=== PATIENT | female | born 1985 | race Caucasian/White ===

== ENCOUNTER 2025-02-25 19:28 | Emergency (ER) | payer OTHER, SELFPAY ==
[2025-02-25 19:32] VITALS: BP 145/97
[2025-02-25 20:13] LABS: Urine Character Clear (Clear)
[2025-02-25 20:18] LABS: HCG, Serum Qualitative Screen Negative
[2025-02-25 20:23] LABS: ALT (SGPT) 22 U/L (0-35); AST (SGOT) 25 U/L (14-36); Albumin 5.2 g/dl (3.5-5.0); Alkaline Phosphatase 49 U/L (38-126); Blood Urea Nitrogen 7 mg/dl (7-17); Calcium 9.6 mg/dl (8.4-10.2); Carbon Dioxide 25 mmol/L (22-30); Chloride 104 mmol/L (98-107); Glucose 90 mg/dl (70-99); Potassium 4.8 mmol/L (3.5-5.1); Sodium 138 mmol/L (135-145); Total Protein 7.7 g/dl (6.3-8.2); eGFR > 60.00
[2025-02-25 20:51] LABS: Hematocrit 41.8 % (37.0-47.0); Hemoglobin 14.1 g/dL (12.0-16.0); Mean Corp Hgb Conc. 34.1 g/dL (33.0-37.0); Mean Corpuscular Volume 89.6 fL (81.0-99.0); Nucleated Red Blood Cells % 0 %; Platelet Count 181 10^3/uL (130-400); Red Cell Dist. Width 12.6 % (11.5-14.5)
--- NOTE | 2025-02-25 21:38 | ED.GENMED ---
History of Present Illness
General
Chief Complaint: Back Pain
Source: patient
Exam Limitations: none
Time Seen by Provider: 02/25/25 21:23
History of Present Illness
History of Present Illness:
39yoF with a history of GERD, IBS, and migraines presenting with her for evaluation of low back pain. Patient was sitting on the ground around 1pm when she stood up and suddenly felt a sharp pain in her lumbar spine. Pain radiates to the
right lower back. Pain is worse with movement. She tried a muscle relaxer without any relief. She also reports feeling weak in her right leg. She was started on Bactrim yesterday by urgent care for a possible UTI. She has been experiencing pain
at the opening of her urethra for the past few days leading up to today. No issues with urination today. She denies any paresthesias/saddle anesthesia, incontinence, fevers.
Phy Exam
General Physical Exam
General Presentation: well appearing and no apparent distress
General Skin: warm and dry
General Habitus: normal
General Mental: alert
ENT Exam
ENT Exam: normocephalic
Cardiovascular Exam
Cardiovascular Exam: normal peripheral pulses (2+ DP pulses bilaterally)
Pulmonary Exam
Pulmonary Exam: no respiratory distress
Gastrointestinal Exam
Gastrointestinal Exam: non tender, soft and non distended
Neurological Exam
Neurological Exam: alert and other (4/5 strength with R hip flexion due to pain. 5/5 strength with dorsiflexion and plantar flexion.)
[place] Coma Scale
Eye Opening: Spontaneous
Verbal Response: Oriented
Motor Response: Obeys Commands
GCS Total Score: 15
Musculoskeletal Exam
Musculoskeletal Exam: other (+Tenderness to lower lumbar region. No step-offs or skin changes.)
Skin Exam
Skin Exam: normal color and warm/dry
Psychiatric Exam
Psychiatric Exam: normal mood/affect
Course
Orders/Labs/Results
Orders:
Orders
02/25/25 19:36
Test Result ONCE
02/25/25 19:46
Complete Blood Count/With Diff Urgent
Comprehensive Metabolic Panel Urgent
HCG, Serum Qualitative Screen Urgent
02/25/25 19:51
Urine Reflex Culture from UA [Urinalysis Reflex To Culture] Urgent
Date Specimen was Collected: 02/25/25
Time Specimen was Collected: 19:35
02/25/25 21:37
CT Lumbar Spine W/o Iv Contras Urgent
Comment:
Reason For Exam: low back pain, R leg weakness
Ketorolac [Toradol] 30 mg IV NOW STA
Lidocaine [Lidocaine 4% Patch] 1 patch TOPICAL ONCE ONE
Apply Lidocaine patch(s) to:: low back
Abnormal Lab Results
02/25/25
19:46
MPV 14.2 H fL
(7.4-10.4)
Albumin 5.2 H g/dl
(3.5-5.0)
02/25/25 19:46
02/25/25 19:46
Vital Signs
Initial and Last Documented VS:
Initial Vital Signs
Temp Pulse Resp BP Pulse Ox
97.8 F 68 20 145/97 99
02/25/25 19:32 02/25/25 19:32 02/25/25 19:32 02/25/25 19:32 02/25/25 19:32
Last Documented Vital Signs
Temp Pulse Resp BP Pulse Ox
97.8 F 58 18 111/74 100
02/25/25 19:32 02/25/25 23:41 02/25/25 23:41 02/25/25 23:41 02/25/25 23:41
MDM/Problems Addressed
Differential Diagnosis Includes:
39yoF here with low back pain after standing up this afternoon. Feels R leg is weak but denies paresthesias. No red flags in history including no saddle anesthesia, incontinence, fevers. VSS. There is reproducible lumbar spine tenderness on exam.
4/5 strength with R hip flexion due to pain. Differential diagnosis includes: muscular strain, herniated disc, doubt fracture
Labs obtained in triage are unremarkable and UA bland without signs of infection. CT lumbar spine obtained which is negative for acute findings/fractures. Disc spaces are maintained and there evidence of central canal/foraminal stenosis. Patient
reports sensitivity to NSAIDs due to GERD. She does have IM Toradol at home as well as tizanidine for her migraines that she can use PRN. Prescription provided for prednisone and supportive care discussed. Advised f/u with PCP and patient discharged
in stable condition.
*Pulse Oximetry
SaO2: 99
Oxygen Mode of Delivery: Room air
Patient hypoxic: no (99%)
*Critical Care Note
Total Time (30-74mins, 75-104mins- exclusive of procedures): Not Applicable
ED Attending Note
-
Portions of this chart may have been created with voice recognition software.� Occasional wrong word or��sound alike� substitutions may have occurred due to the inherent limitations of voice recognition software.
Discharge Plan
Departure
Patient Disposition: Home (Routine Discharge)
Date of Disposition: 02/25/25
Time of Disposition: 23:32
Patient with high blood pressure during this ER visit?: Yes
Discharge Problem:
Acute low back pain
Instructions: Low Back Pain (DC)
Prescriptions:
New
prednisone 50 mg tablet
50 mg PO DAILY Qty: 5 0RF
Referrals:
Ugo Maki I., DO [Family Provider, Internal Medicine]
Activity Restrictions/Additional Instructions:
Take prednisone as prescribed. Apply heat to affected area. Use lidocaine patches daily (12 hours on, 12 hours off). You may also take Tylenol and continue taking your muscle relaxer as needed.
Please follow-up with your family doctor next week. Return to the ER with any new or worsening symptoms.
Interventions
Interventions:
*Risk Screen - Suicide Last Done: 02/25/25 21:52
*General Assessment Last Done: 02/25/25 19:32
*Neglect/Abuse Screening Last Done: 02/25/25 21:52
*ED- Fall Risk Assessment Last Done: 02/25/25 21:52
*ED COVID-19 Vaccine History Last Done: 02/25/25 21:52
*Nursing Disposition Last Done: 02/25/25 23:46
ED-Musculoskeletal Assessment Last Done: 02/25/25 21:52
Discharge Date and Time
Discharge Date/Time: 02/25/25 23:46
Print Language: [id number]
[2025-02-25] MEDS: TORADOL 30 MG IV (21:46)
[2025-02-25] MEDS: LIDOCAINE 4% PATCH 1 PATCH TOPICAL (21:47)
[2025-02-25 23:41] VITALS: BP 111/74
== END 2025-02-25 23:46 | disposition home or self-care (01) ==
LOC: EMR 19:28
PROVIDERS: EMERGENCY PHYSICIAN Emergency Medicine; FAMILY PHYSICIAN Internal Medicine
DX: M54.50 Low back pain, unspecified (principal); K21.9 Gastro-esophageal reflux disease without esophagitis; K58.9 Irritable bowel syndrome, unspecified
CPT/HCPCS: 99284; 72131; 80053; 81003; 84703; 85025